=== PATIENT | male | born 1945 | race Caucasian/White ===

== ENCOUNTER 2018-09-20 10:22 | Day surgery (SDC) | payer MEDICARE, BC ==
[~2018-09-20] VITALS: Ht 175.3 cm; Wt 75.4 kg
[2018-09-20] VITALS (10 sets, daily range): BP systolic 110–135; BP diastolic 58–88
[~2018-09-20 10:22] MED LIST: INSU100V36 SQ; LANTUS SUBCUT; [UNRECOGNIZED DRUG - CODE] PO; [UNRECOGNIZED DRUG - CODE] PO
[2018-09-20] MEDS ORDERED: MIDAZolam 5mg/ml 2ml vial IV ONE (10:55)
[2018-09-20] MEDS ORDERED: fentaNYL/PF 50MCG/1 ML 2ML syringe IV ONE (10:55)
[2018-09-20] MEDS ORDERED: normal saline 1000ml 1,000 ML IV SCH (10:55)
[2018-09-20] MEDS ORDERED: DAPA10TA PO (10:57)
[2018-09-20] MEDS ORDERED: MULT-933 PO (10:57)
[2018-09-20] MEDS ORDERED: RIVA20TA PO (10:57)
[2018-09-20] MEDS ORDERED: AMYL1CAP57 PO (10:57)
[2018-09-20] MEDS ORDERED: FLEC100T2 PO (10:57)
== END 2018-09-20 13:26 | disposition home or self-care (01) ==
LOC: SSTAY O 10:22
PROVIDERS: ATTEND Internal Medicine Cardiovascular Disease
DX: I48.4 Atypical atrial flutter (principal); I08.1 Rheumatic disorders of both mitral and tricuspid valves
CPT/HCPCS: 92960; 93005; 93312; J2250; J3010; J7030

== ENCOUNTER 2019-04-09 13:08 | Outpatient (CLI) | payer MEDICARE, BC ==
[~2019-04-09 13:08] MED LIST changes: +AMYL1CAP57 PO; +DAPA10TA PO; +FLEC100T2 PO; -INSU100V36 SQ; +MULT-933 PO; +RIVA20TA PO; -[UNRECOGNIZED DRUG - CODE] PO; -[UNRECOGNIZED DRUG - CODE] PO
== END 2019-04-09 23:59 | disposition home or self-care (01) ==
LOC: RAD 13:08
PROVIDERS: ATTEND Internal Medicine Gastroenterology
DX: R13.14 Dysphagia, pharyngoesophageal phase (principal); K21.0 Gastro-esophageal reflux disease with esophagitis; R05 Cough; R09.89 Other specified symptoms and signs involving the circulatory and respiratory systems; F17.200 Nicotine dependence, unspecified, uncomplicated; Z79.899 Other long term (current) drug therapy
CPT/HCPCS: 74230

== ENCOUNTER 2021-07-15 08:00 | Day surgery (SDC) | payer MEDICARE, BC ==
[~2021-07-15] VITALS: Ht 175.3 cm; Wt 68.0 kg
[2021-07-15] MEDS ORDERED: normal saline 1000ml 1,000 ML IV SCH (08:30)
[2021-07-15] MEDS ORDERED: MIDAZolam 1mg/ml 10ml vial IV ONE (08:30)
[2021-07-15] MEDS ORDERED: fentaNYL/PF 50MCG/1 ML 2ML syringe IV ONE (08:30)
[2021-07-15 08:32] VITALS: BP 160/74
[2021-07-15] MEDS ORDERED: Vitamin D3 PO (08:39)
[2021-07-15] MEDS ORDERED: ASCO-162 PO (08:39)
[2021-07-15] MEDS ORDERED: tumeric PO (08:39)
[2021-07-15 08:56] LABS: BASOPHILS # (AUTO) 0.1 X10'3 (0-0.2); EOSINOPHILS # (AUTO) 0.3 X10'3 (0-0.9); EOSINOPHILS % (AUTO) 2.9 % (0-6); HEMATOCRIT 38.3 % (42.0-52.0); HEMOGLOBIN 12.7 g/dl (14.0-17.9); LYMPHOCYTES # (AUTO) 2.2 X10'3 (1.1-4.8); LYMPHOCYTES % (AUTO) 22.2 % (21-51); MEAN CORPUSCULAR HEMOGLOBIN 30.4 PG (27.0-31.0); MEAN CORPUSCULAR HGB CONC 33.1 g/dL (33.0-36.5); MEAN CORPUSCULAR VOLUME 91.8 FL (78-98); MEAN PLATELET VOLUME 8.2 FL (7.4-10.4); MONOCYTES % (AUTO) 10.4 % (2-12); NEUTROPHILS # (AUTO) 6.2 X10'3 (1.8-7.7); NEUTROPHILS % (AUTO) 63.5 % (42-75); PLATELET COUNT 598 X10'3 (140-440); RED BLOOD COUNT 4.17 X10'6 (4.70-6.10); RED CELL DISTRIBUTION WIDTH 14.3 % (11.5-14.5); WHITE BLOOD COUNT 9.8 X10'3 (4.5-11.0)
--- NOTE | 2021-07-15 09:15 | NUR ---
Dr Holman at bedside, pt in Sinus Rhythm. reviewed EKG and pt on monitor. States will see him at next appointment in 1 month. canceled cardioversion.
[2021-07-15 10:36] LABS: ALBUMIN 3.4 G/DL (3.4-5.0); ANION GAP 12 (8-16); BLOOD UREA NITROGEN 16 MG/DL (7-18); BUN/CREATININE RATIO 18.2 (5.4-32.0); CALCIUM 8.2 MG/DL (8.5-10.1); CHLORIDE 107 MMOL/L (99-107); CREATININE 0.88 MG/DL (0.60-1.10); GLUCOSE 175 MG/DL (70-104); SODIUM 144 MMOL/L (135-145); eGFR 84 ML/MIN
== END 2021-07-15 09:23 | disposition home or self-care (01) ==
LOC: SSTAY O 08:00
PROVIDERS: ATTEND Internal Medicine Cardiovascular Disease
DX: I48.0 Paroxysmal atrial fibrillation (principal); Z53.8 Procedure and treatment not carried out for other reasons; Z79.899 Other long term (current) drug therapy
CPT/HCPCS: 36415; 80048; 82948; 83735; 85025; 85610

== ENCOUNTER 2021-07-27 12:26 | Inpatient (IN) | payer MEDICARE, BC ==
[~2021-07-27] VITALS: Ht 175.3 cm; Wt 67.3 kg
[~2021-07-27 12:26] MED LIST changes: +ASCO-162 PO; +Vitamin D3 PO; +tumeric PO
[2021-07-27] MEDS ORDERED: fentaNYL/PF 50MCG/1 ML 2ML syringe IV ONE (12:40)
[2021-07-27] MEDS ORDERED: ondansetron/PF 4mg/2ml inj IV ONE (12:50)
[2021-07-27] MEDS ORDERED: normal saline 1000ML IV soln IVB ONE (12:50)
[2021-07-27 13:06] LABS: BASOPHILS # (AUTO) 0.1 X10'3 (0-0.2); BASOPHILS % (AUTO) 0.4 % (0-1); HEMOGLOBIN 14.4 g/dl (14.0-17.9); LYMPHOCYTES # (AUTO) 1.8 X10'3 (1.1-4.8)
[2021-07-27 13:07] LABS: EOSINOPHILS # (AUTO) 0.1 X10'3 (0-0.9); EOSINOPHILS % (AUTO) 0.3 % (0-6); HEMATOCRIT 44.5 % (42.0-52.0); LYMPHOCYTES % (AUTO) 10.7 % (21-51); MEAN CORPUSCULAR HEMOGLOBIN 30.2 PG (27.0-31.0); MEAN CORPUSCULAR HGB CONC 32.4 g/dL (33.0-36.5); MEAN CORPUSCULAR VOLUME 93.3 FL (78-98); MEAN PLATELET VOLUME 8.3 FL (7.4-10.4); MONOCYTES % (AUTO) 5.6 % (2-12); NEUTROPHILS # (AUTO) 14.2 X10'3 (1.8-7.7); PLATELET COUNT 665 X10'3 (140-440); RED BLOOD COUNT 4.76 X10'6 (4.70-6.10); RED CELL DISTRIBUTION WIDTH 14.6 % (11.5-14.5); WHITE BLOOD COUNT 17.2 X10'3 (4.5-11.0)
[2021-07-27] MEDS: fentaNYL/PF 50MCG/1 ML 2ML syringe IV ONE ×2 (13:17→13:35)
[2021-07-27 13:21] LABS: ALANINE AMINOTRANSFERASE 35 U/L (12-78); ALBUMIN 4.3 G/DL (3.4-5.0); ALBUMIN/GLOBULIN RATIO 1.1 (1.1-1.5); ALKALINE PHOSPHATASE 142 IU/L (46-116); ANION GAP 13 (8-16); ASPARTATE AMINO TRANSFERASE 19 U/L (10-37); BILIRUBIN,TOTAL 0.5 MG/DL (0.1-1.0); BLOOD UREA NITROGEN 15 MG/DL (7-18); BUN/CREATININE RATIO 14.6 (5.4-32.0); CALCIUM 9.1 MG/DL (8.5-10.1); CHLORIDE 103 MMOL/L (99-107); CREATININE 1.03 MG/DL (0.60-1.10); GLUCOSE 154 MG/DL (70-104); MAGNESIUM 2.4 MG/DL (1.5-2.4); POTASSIUM 3.8 MMOL/L (3.5-5.1); SODIUM 141 MMOL/L (135-145); TOTAL CARBON DIOXIDE 24.9 MMOL/L (24-32); TOTAL PROTEIN 8.3 G/DL (6.4-8.2); eGFR 70 ML/MIN
--- NOTE | 2021-07-27 13:24 | NUR ---
NOTIFIED THE MÓNICA /PROVIDER THAT PT IS STILL NAUSEOUS AFTER THE IV ZOFRAN, VERBAL ORDER FOR COMPAZINE 10 MG IV ONCE AND ENCOURGE THE PT TO TAKE ORAL CONTRAST.
[2021-07-27] MEDS ORDERED: proCHLORperazine 10 MG/2 ml inj IV ONE (13:30)
[2021-07-27 13:42] LABS: LIPASE < 50 U/L (73-393)
--- NOTE | 2021-07-27 13:45 | NUR ---
GASTROGRAFFIN NOT STARTED YET PT WAS NAUSEOUS AND JUST ADMIN THE MEDS FOR NAUSEA,WILL REASSESS THE NAUSEA AND THEN ADMIN GASTROGRAFIN.
[2021-07-27] MEDS: diatr meglu/diatrizoate 30ml oral sol.-(3 dose) bottle PO SCH ×2 (13:57→15:01)
[2021-07-27] MEDS ORDERED: piperacillin/tazo 3.375gm/50ml 50 ML IV ONE (14:20)
[2021-07-27] MEDS ORDERED: normal saline 1000ML IV soln IV ONE (14:20)
[2021-07-27] MEDS ORDERED: iohexol 300mg/ml 100ml inj. ONE (14:29)
[2021-07-27 14:35] LABS: CLARITY,URINE CLEAR (Clear); GLUCOSE, URINE >=1000 mg/dl (Neg); KETONES,URINE TRACE mg/dl (Neg); LEUKOCYTE ESTERASE ,URINE NEGATIVE (Neg); NITRITES, URINE NEGATIVE (Neg); OCCULT BLOOD,URINE NEGATIVE (Neg); PROTEIN,URINE TRACE mg/dl (Neg); UROBILINOGEN,URINE 0.2 E.U/dL (0.2-1.0)
[2021-07-27] MEDS ORDERED: HYDROmorphone 1 mg/ml syringe IV ONE ×2 (14:35→16:00)
[2021-07-27 14:41] LABS: COLOR,URINE DARK YELLOW (Yellow); UA COLLECTION TYPE NON-SPECIFIED
[2021-07-27 14:43] LABS: BACTERIA,URINE FEW /HPF (Neg); MUCUS STRANDS MODERATE /LPF (Neg); RBC,URINE 0-2 /HPF (0-2); SQUAMOUS EPITHELIAL CELL,UR FEW /LPF (FEW); WBC,URINE 0-4 /HPF (0-4)
[2021-07-27 14:44] LABS: FINE GRANULAR CAST 0-3 /LPF (NEGATIVE)
[2021-07-27] MEDS ORDERED: LIDOcaine 1% (10mg/ml) 2ml vial ONE (16:28)
[2021-07-27] MEDS ORDERED: CHOL500049 PO (16:38)
[2021-07-27] MEDS ORDERED: LANTUS SQ (16:38)
[2021-07-27] MEDS ORDERED: DAPA10TA PO (16:38)
[2021-07-27] MEDS ORDERED: ASPI-1475 PO (16:38)
[2021-07-27] MEDS ORDERED: magnesium hydroxide 30ml (MOM) UD suspension PO PRN (16:45)
[2021-07-27] MEDS ORDERED: ondansetron/PF 4mg/2ml inj IV PRN ×3 (16:45→19:00)
[2021-07-27] MEDS ORDERED: acetaminophen 325mg tablet PO PRN ×2 (16:45)
[2021-07-27] MEDS ORDERED: HYDROmorphone/PF 0.2 MG/ML SYRINGE IV PRN ×3 (16:45→19:00)
[2021-07-27] MEDS ORDERED: potassium Cl 20 mEq SR tablet PO PRN ×2 (16:45)
[2021-07-27] MEDS ORDERED: bisacodyl 10mg suppository rectal RC PRN (16:45)
[2021-07-27] MEDS ORDERED: magnesium 4gm in 100ml NS 100 ML IV PRN (16:45)
[2021-07-27] MEDS ORDERED: magnesium Cl slow-release 64mg tablet PO PRN (16:45)
[2021-07-27] MEDS ORDERED: magnesium 2GM in 50ml NS 50 ML IV PRN (16:45)
[2021-07-27] MEDS ORDERED: mag hydrox/Alum hydrox/simeth 30ml oral suspension PO PRN (16:45)
[2021-07-27] MEDS ORDERED: potassium CL 10mEq/100ml bag 100 ML IV PRN (16:45)
[2021-07-27] MEDS ORDERED: ondansetron 4mg rapidly disintigrating tab PO PRN (16:45)
[2021-07-27 17:26] LABS: APTT 29 SECONDS (22-32); MAGNESIUM 2.1 MG/DL (1.5-2.4); POTASSIUM 4.2 MMOL/L (3.5-5.1)
--- NOTE | 2021-07-27 17:27 | NUR ---
pt taken to or by recovery staff ,pt belonging and chart handed over to staff , accompained with the pt .
[2021-07-27] MEDS ORDERED: glycopyrrolate 0.2mg/ml inj ONE (17:36)
[2021-07-27] MEDS ORDERED: neostigmine methylsulfate 1 MG/ML 10ml vial ONE (17:36)
[2021-07-27] MEDS ORDERED: sevoflurane 250ml liquid IH ONE (17:36)
[2021-07-27] MEDS ORDERED: midazolam 1 mg/ML 2ml injection ONE (17:40)
[2021-07-27] MEDS ORDERED: fentaNYL /PF 50mcg/ml 5ml ampule ONE (17:43)
[2021-07-27] MEDS: VANCOMYCIN 1GM/200ML IVPB 200 ML IV SCH (18:00)
[2021-07-27] MEDS ORDERED: propofol inj 20 ML IV ONE (18:36)
[2021-07-27] MEDS ORDERED: rocuronium 10mg/ml inj IV ONE (18:36)
[2021-07-27] MEDS ORDERED: labetalol 20mg/4ml (5mg/ml) syringe IV ONE (18:36)
[2021-07-27] MEDS ORDERED: sugammadex 200mg/2ml injection IV ONE (18:43)
--- NOTE | 2021-07-27 18:55 | NUR ---
Received from OR via bed, accompanied by Anesthesiologist jorge and report given by Anesthesiolgist. pt drowsy, oxygenating well on 10 lpm 02 via mask, no resp distress noted. denies nausea, c/o pain to abd 8/10. medicated prn, see emar. midline abdominal incision covered with island dsg, scant sanginous drainage. marked drainage with pen. fc patent, scds on. r radial art line dcd. rij cvl, xray confirmed placement. vss, sl htn. will continue to monitor.
[2021-07-27] MEDS ORDERED: labetalol 20mg/4ml (5mg/ml) syringe IV PRN (19:00)
[2021-07-27] MEDS ORDERED: ringers solution, lacted 1,000 ML IV SCH (19:00)
[2021-07-27] MEDS ORDERED: meperidine/PF 25mg/ml syringe IV PRN ×3 (19:00)
[2021-07-27 19:09] VITALS: BP 171/85
[2021-07-27 19:20] VITALS: BP 161/68
[2021-07-27 19:30] VITALS: BP 160/69
[2021-07-27 19:40] VITALS: BP 162/79
[2021-07-27] MEDS ORDERED: HYDROmorphone inj. 0.5 MG/0.5 ML DISP.SYRIN ONE (19:48)
[2021-07-27 19:50] VITALS: BP 155/80
[2021-07-27 20:00] VITALS: BP 150/78
[2021-07-27] MEDS: docusate sod 100mg capsule PO SCH (20:00)
[2021-07-27] MEDS: K and/or MAG REPLACEMENT MC SCH (20:00)
--- NOTE | 2021-07-27 20:20 | NUR ---
Report called to receiving nurse. Transferred via bed Belongings with pt, 1 bag with clothes and b hearing aids are in ears. pain level trending down after meds given in pacu. vss. stable at time of transfer. Special Issues communicated to receiving nurse.
[2021-07-27] MEDS: normal saline 1000ml 1,000 ML IV SCH (21:00)
[2021-07-27] MEDS ORDERED: temazepam 15mg capsule PO PRN (21:00)
[2021-07-27] MEDS: HYDROmorphone inj. 0.5 MG/0.5 ML DISP.SYRIN IV PRN (21:01)
[2021-07-28] VITALS: BP 130/55
[2021-07-28] MEDS: piperacillin/tazo 3.375gm/50ml 50 ML IV SCH ×4 (00:33→23:56)
[2021-07-28] MEDS: HYDROmorphone inj. 0.5 MG/0.5 ML DISP.SYRIN IV PRN ×5 (01:46→20:38)
[2021-07-28] MEDS: normal saline 1000ml 1,000 ML IV SCH ×3 (02:45→17:47)
[2021-07-28 05:19] LABS: BASOPHILS # (AUTO) 0.1 X10'3 (0-0.2); BASOPHILS % (AUTO) 0.4 % (0-1); EOSINOPHILS % (AUTO) 0 % (0-6); HEMATOCRIT 37.5 % (42.0-52.0); HEMOGLOBIN 12.1 g/dl (14.0-17.9); LYMPHOCYTES # (AUTO) 1.5 X10'3 (1.1-4.8); LYMPHOCYTES % (AUTO) 7.4 % (21-51); MEAN CORPUSCULAR HGB CONC 32.3 g/dL (33.0-36.5); MEAN CORPUSCULAR VOLUME 92.9 FL (78-98); MEAN PLATELET VOLUME 8.2 FL (7.4-10.4); MONOCYTES # (AUTO) 1.6 X10'3 (0-0.9); MONOCYTES % (AUTO) 8.1 % (2-12); NEUTROPHILS # (AUTO) 16.9 X10'3 (1.8-7.7); NEUTROPHILS % (AUTO) 84.1 % (42-75); PLATELET COUNT 584 X10'3 (140-440); RED BLOOD COUNT 4.03 X10'6 (4.70-6.10); RED CELL DISTRIBUTION WIDTH 14.4 % (11.5-14.5); WHITE BLOOD COUNT 20.1 X10'3 (4.5-11.0)
[2021-07-28 05:58] LABS: ALANINE AMINOTRANSFERASE 25 U/L (12-78); ALBUMIN 2.9 G/DL (3.4-5.0); ALBUMIN/GLOBULIN RATIO 1.1 (1.1-1.5); ALKALINE PHOSPHATASE 99 IU/L (46-116); ANION GAP 10 (8-16); ASPARTATE AMINO TRANSFERASE 15 U/L (10-37); BILIRUBIN,TOTAL 0.7 MG/DL (0.1-1.0); BLOOD UREA NITROGEN 12 MG/DL (7-18); BUN/CREATININE RATIO 16.9 (5.4-32.0); CALCIUM 7.4 MG/DL (8.5-10.1); CHLORIDE 111 MMOL/L (99-107); CREATININE 0.71 MG/DL (0.60-1.10); GLUCOSE 99 MG/DL (70-104); MAGNESIUM 1.8 MG/DL (1.5-2.4); POTASSIUM 4.5 MMOL/L (3.5-5.1); SODIUM 142 MMOL/L (135-145); TOTAL CARBON DIOXIDE 20.7 MMOL/L (24-32); TOTAL PROTEIN 5.5 G/DL (6.4-8.2); eGFR > 90 ML/MIN
--- NOTE | 2021-07-28 06:44 | NUR ---
Problems reprioritized. Patient report given, questions answered & plan of care reviewed with AGUSTIN CASAS.
--- NOTE | 2021-07-28 06:44 | NUR ---
Patient in room ZOIE 357. I have received report from YESSENIA Tapia and had the opportunity to ask questions and assume patient care.
[2021-07-28 07:00] VITALS: BP 138/59
[2021-07-28] MEDS: docusate sod 100mg capsule PO SCH ×2 (07:43→19:14)
[2021-07-28] MEDS: flecainide 50mg tablet PO SCH (07:44)
[2021-07-28] MEDS: VANCOMYCIN 1GM/200ML IVPB 200 ML IV SCH ×2 (07:45→20:38)
[2021-07-28] MEDS: K and/or MAG REPLACEMENT MC SCH ×2 (08:00→20:00)
[2021-07-28] MEDS: aspirin 81mg, enteric-coated 1 TAB TABLET.DR PO SCH (08:00)
[2021-07-28] MEDS ORDERED: insulin glargine (Lantus) pen - multi-dose SQ SCH (08:00)
[2021-07-28 11:00] VITALS: BP 147/56
[2021-07-28 11:51] LABS: HEMOGLOBIN A1C 7.9 % (4.5-6.2)
[2021-07-28 12:30] VITALS: BP 139/63
--- NOTE | 2021-07-28 13:10 | NUR ---
Diabetes consult: Noted pt w/ hx of DM, A1c 7.9 down from 9.8 in 2017. Written DM ed w/ RD contact info placed in pt chart Addendum: 07/28/21 at [address] Amended: Links added.
--- NOTE | 2021-07-28 13:40 | NUR ---
FC DC'd by student RN and instructor. Pt tolerated well. Will continue to monitor.
--- NOTE | 2021-07-28 17:12 | NUR ---
Charting by Jamshid SHARMA reviewed by Myranda Roldan RN
[2021-07-28] MEDS ORDERED: insulin Lispro (HumaLOG) vial - multi-dose SQ SCH (18:20)
[2021-07-28] MEDS ORDERED: glucagon, human recombinant 1mg kit SUBCUT PRN (18:20)
[2021-07-28] MEDS ORDERED: DEXTROSE 15 GM of carb/4 tabs (each vial/BOTTLE has 4 tablets) PO PRN ×2 (18:20)
[2021-07-28] MEDS ORDERED: dextrose 50%-water 50ml dispensing syringe IV PRN ×2 (18:20)
--- NOTE | 2021-07-28 18:20 | NUR ---
Patient in room ZOIE 357. I have received report from karoline CASAS and had the opportunity to ask questions and assume patient care.
--- NOTE | 2021-07-28 18:37 | NUR ---
Problems reprioritized. Patient report given, questions answered & plan of care reviewed with YESSENIA Tapia.
[2021-07-28] MEDS: rivaroxaban 20mg tablet PO SCH (19:15)
[2021-07-28] MEDS ORDERED: VANCOMYCIN LEVEL IV ONE (19:30)
[2021-07-28] MEDS: metoclopramide 5 mg/ml inj IV PRN (20:31)
--- NOTE | 2021-07-28 20:45 | NUR ---
Pt ambulated about 60 feet and has been up to the BR with 1 assist. Pt had a bout of bile/greenish emesis 100 ml, reglan 10 mg IVP administered and was effective.
[2021-07-28] MEDS: insulin glargine (Lantus) pen - multi-dose SQ SCH (21:00)
[2021-07-28] MEDS ORDERED: flecainide 50mg tablet PO ONE (21:40)
[2021-07-28 22:34] VITALS: BP 169/58
[2021-07-29] VITALS: BP 95/55
[2021-07-29 00:38] VITALS: BP 141/99
[2021-07-29] MEDS: HYDROmorphone inj. 0.5 MG/0.5 ML DISP.SYRIN IV PRN ×4 (03:08→18:52)
[2021-07-29 06:18] LABS: BASOPHILS # (AUTO) 0.1 X10'3 (0-0.2); BASOPHILS % (AUTO) 0.4 % (0-1); EOSINOPHILS # (AUTO) 0.2 X10'3 (0-0.9); HEMATOCRIT 35.2 % (42.0-52.0); HEMOGLOBIN 11.4 g/dl (14.0-17.9); LYMPHOCYTES # (AUTO) 1.4 X10'3 (1.1-4.8); LYMPHOCYTES % (AUTO) 7.3 % (21-51); MEAN CORPUSCULAR HGB CONC 32.3 g/dL (33.0-36.5); MEAN CORPUSCULAR VOLUME 92.9 FL (78-98); MEAN PLATELET VOLUME 8.5 FL (7.4-10.4); MONOCYTES # (AUTO) 1.8 X10'3 (0-0.9); MONOCYTES % (AUTO) 9.4 % (2-12); NEUTROPHILS # (AUTO) 15.9 X10'3 (1.8-7.7); NEUTROPHILS % (AUTO) 81.9 % (42-75); PLATELET COUNT 511 X10'3 (140-440); RED BLOOD COUNT 3.79 X10'6 (4.70-6.10); RED CELL DISTRIBUTION WIDTH 14.8 % (11.5-14.5); WHITE BLOOD COUNT 19.4 X10'3 (4.5-11.0)
[2021-07-29 06:34] LABS: ALANINE AMINOTRANSFERASE 21 U/L (12-78); ALBUMIN 2.8 G/DL (3.4-5.0); ALBUMIN/GLOBULIN RATIO 1.1 (1.1-1.5); ALKALINE PHOSPHATASE 88 IU/L (46-116); ANION GAP 11 (8-16); ASPARTATE AMINO TRANSFERASE 15 U/L (10-37); BILIRUBIN,TOTAL 0.7 MG/DL (0.1-1.0); BLOOD UREA NITROGEN 18 MG/DL (7-18); BUN/CREATININE RATIO 22.8 (5.4-32.0); CALCIUM 7.6 MG/DL (8.5-10.1); CHLORIDE 109 MMOL/L (99-107); CREATININE 0.79 MG/DL (0.60-1.10); GLUCOSE 143 MG/DL (70-104); POTASSIUM 4.6 MMOL/L (3.5-5.1); SODIUM 141 MMOL/L (135-145); TOTAL CARBON DIOXIDE 21.3 MMOL/L (24-32); TOTAL PROTEIN 5.4 G/DL (6.4-8.2); eGFR > 90 ML/MIN
--- NOTE | 2021-07-29 06:44 | NUR ---
Patient in room ZOIE 357. I have received report from YESSENIA Tapia and had the opportunity to ask questions and assume patient care.
--- NOTE | 2021-07-29 06:50 | NUR ---
Problems reprioritized. Patient report given, questions answered & plan of care reviewed with Marjorie CASAS.
[2021-07-29] MEDS: metoclopramide 5 mg/ml inj IV PRN (07:36)
[2021-07-29] MEDS: docusate sod 100mg capsule PO SCH ×2 (07:46→19:57)
[2021-07-29] MEDS: flecainide 50mg tablet PO SCH ×2 (07:47→20:07)
[2021-07-29] MEDS: piperacillin/tazo 3.375gm/50ml 50 ML IV SCH ×3 (07:51→23:44)
[2021-07-29 08:00] VITALS: BP 174/61
[2021-07-29] MEDS: aspirin 81mg, enteric-coated 1 TAB TABLET.DR PO SCH (08:00)
[2021-07-29] MEDS: K and/or MAG REPLACEMENT MC SCH ×2 (08:00→20:00)
[2021-07-29 11:00] VITALS: BP 142/55
[2021-07-29] MEDS ORDERED: FLEC100T PO (11:31)
[2021-07-29] MEDS: normal saline 1000ml 1,000 ML IV SCH ×2 (17:17→19:00)
[2021-07-29 18:00] VITALS: BP 131/56
--- NOTE | 2021-07-29 18:20 | NUR ---
Problems reprioritized. Patient report given, questions answered & plan of care reviewed with YESSENIA Salinas.
[2021-07-29] MEDS: rivaroxaban 20mg tablet PO SCH (18:51)
[2021-07-29 20:00] VITALS: BP 173/59
[2021-07-29] MEDS: insulin glargine (Lantus) pen - multi-dose SQ SCH (21:00)
[2021-07-30] VITALS: BP 127/62
--- NOTE | 2021-07-30 04:25 | NUR ---
20 G PERIPHERAL IV INSERTED LEFT WRIST.
[2021-07-30] MEDS: HYDROmorphone inj. 0.5 MG/0.5 ML DISP.SYRIN IV PRN ×3 (04:36→14:33)
[2021-07-30 04:40] LABS: BASOPHILS # (AUTO) 0.1 X10'3 (0-0.2); BASOPHILS % (AUTO) 0.7 % (0-1); EOSINOPHILS # (AUTO) 0.8 X10'3 (0-0.9); EOSINOPHILS % (AUTO) 5.1 % (0-6); HEMOGLOBIN 11.3 g/dl (14.0-17.9); LYMPHOCYTES # (AUTO) 1.3 X10'3 (1.1-4.8); LYMPHOCYTES % (AUTO) 8.4 % (21-51); MEAN CORPUSCULAR HEMOGLOBIN 29.9 PG (27.0-31.0); MEAN CORPUSCULAR HGB CONC 32.2 g/dL (33.0-36.5); MEAN CORPUSCULAR VOLUME 92.6 FL (78-98); MEAN PLATELET VOLUME 8.7 FL (7.4-10.4); MONOCYTES # (AUTO) 1.7 X10'3 (0-0.9); MONOCYTES % (AUTO) 10.7 % (2-12); NEUTROPHILS # (AUTO) 11.8 X10'3 (1.8-7.7); NEUTROPHILS % (AUTO) 75.1 % (42-75); PLATELET COUNT 495 X10'3 (140-440); RED BLOOD COUNT 3.78 X10'6 (4.70-6.10); RED CELL DISTRIBUTION WIDTH 14.4 % (11.5-14.5); WHITE BLOOD COUNT 15.7 X10'3 (4.5-11.0)
--- NOTE | 2021-07-30 04:43 | NUR ---
CENTRAL LINE DC. PRESSURE DRESSING APPLIED TO NECK . NO BLEDDING NOTED. PT TOLERATED PROCEDURE WELL.
[2021-07-30 04:46] LABS: ALANINE AMINOTRANSFERASE 17 U/L (12-78); ALBUMIN 2.5 G/DL (3.4-5.0); ALBUMIN/GLOBULIN RATIO 0.8 (1.1-1.5); ALKALINE PHOSPHATASE 80 IU/L (46-116); ANION GAP 12 (8-16); ASPARTATE AMINO TRANSFERASE 16 U/L (10-37); BILIRUBIN,TOTAL 0.7 MG/DL (0.1-1.0); BLOOD UREA NITROGEN 17 MG/DL (7-18); CALCIUM 7.7 MG/DL (8.5-10.1); CHLORIDE 109 MMOL/L (99-107); CREATININE 0.68 MG/DL (0.60-1.10); GLUCOSE 117 MG/DL (70-104); MAGNESIUM 1.9 MG/DL (1.5-2.4); POTASSIUM 3.7 MMOL/L (3.5-5.1); SODIUM 141 MMOL/L (135-145); TOTAL CARBON DIOXIDE 20.4 MMOL/L (24-32); TOTAL PROTEIN 5.7 G/DL (6.4-8.2); eGFR > 90 ML/MIN
[2021-07-30] MEDS: normal saline 1000ml 1,000 ML IV SCH ×2 (05:44→15:43)
--- NOTE | 2021-07-30 06:41 | NUR ---
Problems reprioritized. Patient report given, questions answered & plan of care reviewed with Renata CASAS.
[2021-07-30] MEDS: K and/or MAG REPLACEMENT MC SCH ×2 (06:52→20:00)
[2021-07-30] MEDS: aspirin 81mg, enteric-coated 1 TAB TABLET.DR PO SCH (06:52)
[2021-07-30] MEDS: flecainide 50mg tablet PO SCH ×2 (07:01→20:24)
[2021-07-30] MEDS: docusate sod 100mg capsule PO SCH ×2 (07:01→19:26)
[2021-07-30 07:35] VITALS: BP 116/68
[2021-07-30] MEDS: piperacillin/tazo 3.375gm/50ml 50 ML IV SCH ×2 (10:04→16:18)
[2021-07-30 11:00] VITALS: BP 123/63
[2021-07-30] MEDS: rivaroxaban 20mg tablet PO SCH (17:22)
[2021-07-30 18:00] VITALS: BP 116/71
--- NOTE | 2021-07-30 18:38 | NUR ---
Patient in room ZOIE 357. I have received report from Renata CASAS and had the opportunity to ask questions and assume patient care.
--- NOTE | 2021-07-30 18:45 | NUR ---
Report given to Bobbi CASAS, all questions answered. Pt resting comfortably in bed.
[2021-07-30] MEDS: oxyCODONE/APAP 5-325mg tablet PO PRN (19:26)
[2021-07-30] MEDS ORDERED: VANCOMYCIN LEVEL IV ONE (19:30)
[2021-07-30] MEDS: insulin glargine (Lantus) pen - multi-dose SQ SCH (21:00)
[2021-07-30] MEDS ORDERED: traMADol 50MG tablet PO PRN (21:50)
[2021-07-31] VITALS: BP 121/54
[2021-07-31] MEDS: piperacillin/tazo 3.375gm/50ml 50 ML IV SCH ×3 (00:42→17:03)
[2021-07-31] MEDS: oxyCODONE/APAP 5-325mg tablet PO PRN ×3 (04:05→19:57)
[2021-07-31] MEDS: normal saline 1000ml 1,000 ML IV SCH ×3 (04:06→17:03)
[2021-07-31 06:01] LABS: BASOPHILS # (AUTO) 0.1 X10'3 (0-0.2); BASOPHILS % (AUTO) 0.5 % (0-1); EOSINOPHILS # (AUTO) 0.5 X10'3 (0-0.9); EOSINOPHILS % (AUTO) 3.4 % (0-6); HEMATOCRIT 35.1 % (42.0-52.0); HEMOGLOBIN 11.2 g/dl (14.0-17.9); LYMPHOCYTES # (AUTO) 1.3 X10'3 (1.1-4.8); LYMPHOCYTES % (AUTO) 9.6 % (21-51); MEAN CORPUSCULAR HEMOGLOBIN 29.8 PG (27.0-31.0); MEAN CORPUSCULAR VOLUME 93.1 FL (78-98); MEAN PLATELET VOLUME 8.7 FL (7.4-10.4); MONOCYTES # (AUTO) 1.8 X10'3 (0-0.9); MONOCYTES % (AUTO) 12.9 % (2-12); NEUTROPHILS # (AUTO) 10.3 X10'3 (1.8-7.7); NEUTROPHILS % (AUTO) 73.6 % (42-75); PLATELET COUNT 485 X10'3 (140-440); RED BLOOD COUNT 3.77 X10'6 (4.70-6.10); RED CELL DISTRIBUTION WIDTH 14.5 % (11.5-14.5); WHITE BLOOD COUNT 13.9 X10'3 (4.5-11.0)
--- NOTE | 2021-07-31 06:22 | NUR ---
Problems reprioritized. Patient report given, questions answered & plan of care reviewed with Renata CASAS.
[2021-07-31 06:24] LABS: ALANINE AMINOTRANSFERASE 17 U/L (12-78); ALBUMIN 2.3 G/DL (3.4-5.0); ALBUMIN/GLOBULIN RATIO 0.7 (1.1-1.5); ALKALINE PHOSPHATASE 73 IU/L (46-116); ANION GAP 13 (8-16); ASPARTATE AMINO TRANSFERASE 13 U/L (10-37); BILIRUBIN,TOTAL 0.7 MG/DL (0.1-1.0); BLOOD UREA NITROGEN 13 MG/DL (7-18); BUN/CREATININE RATIO 17.1 (5.4-32.0); CALCIUM 7.7 MG/DL (8.5-10.1); CHLORIDE 108 MMOL/L (99-107); CREATININE 0.76 MG/DL (0.60-1.10); GLUCOSE 146 MG/DL (70-104); POTASSIUM 3.7 MMOL/L (3.5-5.1); SODIUM 142 MMOL/L (135-145); TOTAL CARBON DIOXIDE 20.6 MMOL/L (24-32); TOTAL PROTEIN 5.5 G/DL (6.4-8.2); eGFR > 90 ML/MIN
[2021-07-31] MEDS: K and/or MAG REPLACEMENT MC SCH ×2 (07:11→20:00)
[2021-07-31] MEDS: flecainide 50mg tablet PO SCH ×2 (07:15→21:17)
[2021-07-31] MEDS: docusate sod 100mg capsule PO SCH ×2 (07:15→19:57)
[2021-07-31 11:00] VITALS: BP 167/70
[2021-07-31] MEDS: rivaroxaban 20mg tablet PO SCH (17:03)
--- NOTE | 2021-07-31 18:29 | NUR ---
Report given to Regina RN, she is familiar with patient. All questions answered at this time. Patient is doing well.
[2021-07-31 19:00] VITALS: BP 135/76
[2021-07-31] MEDS: insulin glargine (Lantus) pen - multi-dose SQ SCH (21:33)
[2021-08-01] VITALS: BP 130/73
[2021-08-01] MEDS: piperacillin/tazo 3.375gm/50ml 50 ML IV SCH ×2 (00:14→10:33)
[2021-08-01] MEDS: normal saline 1000ml 1,000 ML IV SCH (03:02)
[2021-08-01] MEDS: oxyCODONE/APAP 5-325mg tablet PO PRN ×2 (04:07→11:24)
--- NOTE | 2021-08-01 06:13 | NUR ---
Patient in room ZOIE 357. I have received report from YESSENIA Tapia and had the opportunity to ask questions and assume patient care.
--- NOTE | 2021-08-01 06:35 | NUR ---
Dr Augusto orellana for hospitalist to discharge patient. Patient can have home health. Also, patient is aware no roughage (ie, celery and salads.) for a few weeks. Primary RN Toy hurd
--- NOTE | 2021-08-01 06:37 | NUR ---
Problems reprioritized. Patient report given, questions answered & plan of care reviewed with Toy CASAS.
[2021-08-01 06:50] LABS: BASOPHILS # (AUTO) 0.1 X10'3 (0-0.2); BASOPHILS % (AUTO) 0.9 % (0-1); EOSINOPHILS # (AUTO) 0.8 X10'3 (0-0.9); EOSINOPHILS % (AUTO) 8.1 % (0-6); HEMATOCRIT 33.7 % (42.0-52.0); HEMOGLOBIN 11.2 g/dl (14.0-17.9); LYMPHOCYTES # (AUTO) 1.7 X10'3 (1.1-4.8); LYMPHOCYTES % (AUTO) 16.3 % (21-51); MEAN CORPUSCULAR HEMOGLOBIN 30.5 PG (27.0-31.0); MEAN CORPUSCULAR HGB CONC 33.3 g/dL (33.0-36.5); MEAN CORPUSCULAR VOLUME 91.6 FL (78-98); MEAN PLATELET VOLUME 8.5 FL (7.4-10.4); MONOCYTES # (AUTO) 1.5 X10'3 (0-0.9); MONOCYTES % (AUTO) 14.5 % (2-12); NEUTROPHILS # (AUTO) 6.1 X10'3 (1.8-7.7); NEUTROPHILS % (AUTO) 60.2 % (42-75); PLATELET COUNT 505 X10'3 (140-440); RED BLOOD COUNT 3.67 X10'6 (4.70-6.10); RED CELL DISTRIBUTION WIDTH 14.3 % (11.5-14.5); WHITE BLOOD COUNT 10.2 X10'3 (4.5-11.0)
[2021-08-01 06:56] LABS: ALANINE AMINOTRANSFERASE 17 U/L (12-78); ALBUMIN 2.1 G/DL (3.4-5.0); ALBUMIN/GLOBULIN RATIO 0.7 (1.1-1.5); ALKALINE PHOSPHATASE 65 IU/L (46-116); ANION GAP 5 (8-16); ASPARTATE AMINO TRANSFERASE 13 U/L (10-37); BILIRUBIN,TOTAL 0.4 MG/DL (0.1-1.0); BLOOD UREA NITROGEN 8 MG/DL (7-18); CALCIUM 7.5 MG/DL (8.5-10.1); CHLORIDE 110 MMOL/L (99-107); CREATININE 0.73 MG/DL (0.60-1.10); GLUCOSE 120 MG/DL (70-104); SODIUM 142 MMOL/L (135-145); TOTAL CARBON DIOXIDE 26.6 MMOL/L (24-32); TOTAL PROTEIN 5.2 G/DL (6.4-8.2); eGFR > 90 ML/MIN
[2021-08-01 07:00] VITALS: BP 137/62
--- NOTE | 2021-08-01 07:25 | NUR ---
Message: ShilpaA- DONOVAN KOHLER 3.0. OK TO ORDER REPLACEMENT PROTOCOL.-[facility] 4712
[2021-08-01] MEDS: docusate sod 100mg capsule PO SCH (07:49)
[2021-08-01] MEDS: flecainide 50mg tablet PO SCH (07:49)
[2021-08-01] MEDS: K and/or MAG REPLACEMENT MC SCH (08:00)
--- NOTE | 2021-08-01 08:37 | NUR ---
Message: ShilpaA- CATRACHITA KOHLER- CRITICAL K OF 3.0. OK TO ORDER REPLACEMENT PROTOCOL?- THANK YOU, IL[facility] 1745 Custom Responses: promotional table spacer Transaction number: [id number]
[2021-08-01] MEDS ORDERED: magnesium Cl slow-release 64mg tablet PO PRN (08:40)
[2021-08-01] MEDS ORDERED: potassium Cl 20 mEq SR tablet PO PRN (08:40)
[2021-08-01] MEDS ORDERED: magnesium 4gm in 100ml NS 100 ML IV PRN (08:40)
[2021-08-01] MEDS ORDERED: potassium CL 10mEq/100ml bag 100 ML IV PRN (08:40)
[2021-08-01] MEDS ORDERED: AMOX-419 PO (08:41)
[2021-08-01] MEDS ORDERED: POTA10TA37 PO (08:41)
[2021-08-01] MEDS ORDERED: MAGN400C PO (08:43)
--- NOTE | 2021-08-01 08:51 | NUR ---
patient being discharged no humalog given.
[2021-08-01] MEDS: potassium Cl 20 mEq SR tablet PO PRN ×2 (09:06→11:23)
--- NOTE | 2021-08-01 09:41 | NUR ---
Called patients pharmacy [facility] [address] and spoke to Nikita who stated they have no rx for pain medication for patient at this time. Nikita spoke to the phamacist Adonis who stated depending on the amount of pain medication the doctor prescribes today they might be able to fill but they are almost at their quota. Per Dr Casas please call Tatiana at [phone] for him and have her call [facility] for patient only. I called Tatiana and she is aware of Dr Casas request. I also advised Tatiana that the [facility] is almost at their quota and patients 2nd choice will be the [facility] [address].
--- NOTE | 2021-08-01 10:46 | NUR ---
patient up to ambulate and felt dizzy. pt stated everything started to sway to the right. assisted patient back to bed. 156/72, 67HR sp02 98%. he also states this has "happened before too but they could never tell me why."
--- NOTE | 2021-08-01 10:53 | NUR ---
Message: [id number]- Nathalia W-pt up to ambulate and felt dizzy. pt stated everything started to sway to the right. assisted pt back to bed. 156/72, 67HR sp02 98%. he also states this has "happened before too but they could never tell me why." -Toy 3588 Custom Responses: promotional table spacer Transaction number: [id number] Addendum: 08/01/21 at 1057 by Karuna Torrez RN Dr Robles aware states that patient ok to go home after potassium replacement. He just needs to continue to hydrate.
[2021-08-01 11:00] VITALS: BP 143/65
--- NOTE | 2021-08-01 12:17 | NUR ---
Received call back from Dr. Robles who states no concerns and patient may dc if K results WNL. Patient was able to get up and ambulate escorted by Erickson PCT without assist and without issues. Patient and pct stated patient tolerated well and patient denies dizziness or lightheadedness.
[2021-08-01 12:51] LABS: POTASSIUM 3.1 MMOL/L (3.5-5.1)
--- NOTE | 2021-08-01 12:57 | NUR ---
Message: Se Atkinson is 3.1 after receiving kdur 40meq @ 0906 and another 40meq @ [address] [place], [place] [address] Transaction number: [id number]
[2021-08-01] MEDS ORDERED: potassium Cl 20 mEq SR tablet PO STA (12:58)
--- NOTE | 2021-08-01 15:00 | NUR ---
Dr. Robles aware patient's K still low. Dr. Robles ordered for another K draw and if K is >3.3 then patient may dc. Let Dr. Robles know that patient and his spouse did voice concern regarding patient's low K. Dr. Robles stated he is not concerned as patient will be dc'ing with [facility] and will need to follow up with primary if patient's K is >3.3. Let patient know and spouse. They are agreeable to dc.
--- NOTE | 2021-08-01 16:55 | NUR ---
Patient's K is 3.9. Karuna CASAS discussed with patient and his spouse discharge instructions and new prescription. Patient aware that his pain med was called to [facility]. Patient was alert and oriented in no apparrent distress and dc'd with all personal belongings escorted in wheelchair accompanied by x1 pct and his spouse.
[2021-08-01] MEDS ORDERED: enoxaparin 40mg/0.4ml syringe SUBCUT SCH (20:00)
[2021-08-01] MEDS ORDERED: K and/or MAG REPLACEMENT MC SCH (20:00)
== END 2021-08-01 16:57 | disposition home or self-care (01) | DRG 336 ==
LOC: ER 12:27 → ED HOLD 16:50 → UNDOADMIN 16:50 → ED HOLD 17:49 → SUR 3N 19:49
PROVIDERS: ADMIT Family Medicine; ATTEND Family Medicine
PROC: BW211ZZ Computerized Tomography (CT Scan) of Abdomen and Pelvis using Low Osmolar Contrast (ICD-10-PCS; 2021-07-27)
PROC: 0DN80ZZ Release Small Intestine, Open Approach (ICD-10-PCS; principal; 2021-07-27 17:36)
DX: K56.50 Intestinal adhesions [bands], unspecified as to partial versus complete obstruction (principal); D68.69 Other thrombophilia; I48.91 Unspecified atrial fibrillation; N40.0 Benign prostatic hyperplasia without lower urinary tract symptoms; Z20.822 Contact with and (suspected) exposure to COVID-19; I10 Essential (primary) hypertension; E11.9 Type 2 diabetes mellitus without complications; Z79.01 Long term (current) use of anticoagulants; Z85.07 Personal history of malignant neoplasm of pancreas; Z87.891 Personal history of nicotine dependence; Z90.411 Acquired partial absence of pancreas; Z90.81 Acquired absence of spleen; Z88.5 Allergy status to narcotic agent; Z90.49 Acquired absence of other specified parts of digestive tract
CPT/HCPCS: 36415; 71045; 74177; 80053; 80202; 81001; 82948; 83036; 83605; 83690; 83735; 84132; 84145; 85025; 85610; 85730; 86885; 86900; 86901; 86920; 87040; 87081; 87635; 93005; 96361; 96365; 96375; 96376; 97116; 97161; 97530; 99285; A4618; A6258; A6449; A7000; C1758; C9803; G0378; J0780; J1170; J1815; J2250; J2405; J2543; J2704; J2710; J2765; J3010; J3370; J3490; J7030; J7040; Q9963; Q9967

== ENCOUNTER 2022-09-21 22:07 | Emergency (ER) | payer MEDICARE, BC ==
[~2022-09-21] VITALS: Ht 172.7 cm; Wt 63.6 kg
[~2022-09-21 22:07] MED LIST changes: -AMYL1CAP57 PO; -ASCO-162 PO; +CHOL500049 PO; +FLEC100T PO; +LANTUS SQ; -LANTUS SUBCUT; -MULT-933 PO; +ONDA4TAB12 PO; -Vitamin D3 PO; -tumeric PO
[2022-09-21] MEDS ORDERED: AMOX-117 PO (22:48)
[2022-09-21 23:07] VITALS: BP 148/124
== END 2022-09-21 23:08 | disposition home or self-care (01) ==
LOC: ER 22:08
DX: K11.5 Sialolithiasis (principal); T81.49XA Infection following a procedure, other surgical site, initial encounter; D64.9 Anemia, unspecified; E11.9 Type 2 diabetes mellitus without complications; I51.9 Heart disease, unspecified; Z88.5 Allergy status to narcotic agent; Z88.8 Allergy status to other drugs, medicaments and biological substances; Z79.899 Other long term (current) drug therapy
CPT/HCPCS: 99283

== ENCOUNTER 2023-02-25 21:04 | Inpatient (IN) | payer MEDICARE, BC ==
[~2023-02-25] VITALS: Ht 175.3 cm; Wt 57.0 kg
[2023-02-25] MEDS ORDERED: normal saline 1000ML IV soln IVB ONE (22:05)
[2023-02-25 22:11] LABS: BASOPHILS # (AUTO) 0.1 X10'3 (0-0.2); BASOPHILS % (AUTO) 0.3 % (0-1); EOSINOPHILS % (AUTO) 0.1 % (0-6); HEMATOCRIT 40.8 % (42.0-52.0); HEMOGLOBIN 13.2 g/dl (14.0-17.9); LYMPHOCYTES # (AUTO) 0.7 X10'3 (1.1-4.8); LYMPHOCYTES % (AUTO) 4.6 % (21-51); MEAN CORPUSCULAR HEMOGLOBIN 29.6 PG (27.0-31.0); MEAN CORPUSCULAR HGB CONC 32.4 g/dL (33.0-36.5); MEAN CORPUSCULAR VOLUME 91.3 FL (78-98); MEAN PLATELET VOLUME 8.4 FL (7.4-10.4); MONOCYTES # (AUTO) 0.1 X10'3 (0-0.9); MONOCYTES % (AUTO) 0.7 % (2-12); NEUTROPHILS % (AUTO) 94.3 % (42-75); PLATELET COUNT 597 X10'3 (140-440); RED BLOOD COUNT 4.47 X10'6 (4.70-6.10); RED CELL DISTRIBUTION WIDTH 15.1 % (11.5-14.5); WHITE BLOOD COUNT 15.9 X10'3 (4.5-11.0)
[2023-02-25 22:15] LABS: ALANINE AMINOTRANSFERASE 49 U/L (12-78); ALBUMIN 3.6 G/DL (3.4-5.0); ALKALINE PHOSPHATASE 148 IU/L (46-116); ANION GAP 10 (8-16); ASPARTATE AMINO TRANSFERASE 21 U/L (10-37); BILIRUBIN,TOTAL 0.8 MG/DL (0.1-1.0); BLOOD UREA NITROGEN 17 MG/DL (7-18); BUN/CREATININE RATIO 16.3 (10.0-20.0); CALCIUM 9.1 MG/DL (8.5-10.1); CHLORIDE 101 MMOL/L (99-107); CREATININE 1.04 MG/DL (0.60-1.10); GLUCOSE 244 MG/DL (70-104); POTASSIUM 4.2 MMOL/L (3.5-5.1); SODIUM 135 MMOL/L (135-145); TOTAL CARBON DIOXIDE 24.4 MMOL/L (24-32); TOTAL PROTEIN 7.1 G/DL (6.4-8.2); eCRCL 47 ML/MIN; eGFR 69 ML/MIN
[2023-02-25 22:18] LABS: LIPASE 83 U/L (16-77)
[2023-02-26] MEDS ORDERED: ondansetron/PF 4mg/2ml inj IV ONE (01:05)
[2023-02-26] MEDS ORDERED: HYDROmorphone inj. 0.5 MG/0.5 ML DISP.SYRIN IV ONE (01:05)
[2023-02-26] MEDS ORDERED: CefTRIAXone/D5W-Rocephin 1gm 50 ML IV ONE (01:05)
[2023-02-26] MEDS ORDERED: iohexol 300mg/ml 100ml inj. ONE (01:12)
[2023-02-26 02:45] LABS: BILIRUBIN,URINE NEGATIVE (Neg); CLARITY,URINE SLIGHTLY CLOUDY (Clear); COLOR,URINE YELLOW (Yellow); GLUCOSE, URINE >=1000 mg/dl (Neg); KETONES,URINE NEGATIVE (Neg); LEUKOCYTE ESTERASE ,URINE NEGATIVE (Neg); NITRITES, URINE NEGATIVE (Neg); OCCULT BLOOD,URINE NEGATIVE (Neg); PH,URINE 5.5 (4.8-8.0); PROTEIN,URINE NEGATIVE (Neg); UROBILINOGEN,URINE 0.2 E.U/dL (0.2-1.0)
[2023-02-26 02:56] LABS: SQUAMOUS EPITHELIAL CELL,UR FEW /LPF (FEW); UA COLLECTION TYPE VOIDED
[2023-02-26 02:57] LABS: BACTERIA,URINE FEW /HPF (Neg); HYALINE CASTS 0-3 /LPF (NEGATIVE); MUCUS STRANDS FEW /LPF (Neg); RBC,URINE 0-2 /HPF (0-2); WBC,URINE 0-4 /HPF (0-4)
[2023-02-26] MEDS ORDERED: magnesium Cl slow-release 64mg tablet PO PRN (04:05)
[2023-02-26] MEDS ORDERED: DEXTROSE 15 GM of carb/4 tabs (each vial/BOTTLE has 4 tablets) PO PRN ×2 (04:05)
[2023-02-26] MEDS ORDERED: magnesium hydroxide 30ml (MOM) UD suspension PO PRN (04:05)
[2023-02-26] MEDS ORDERED: MESSAGE TO PHARMACY PO ONE (04:05)
[2023-02-26] MEDS ORDERED: glucagon, human recombinant 1mg kit SUBCUT PRN (04:05)
[2023-02-26] MEDS ORDERED: magnesium 4gm in 100ml NS 100 ML IV PRN (04:05)
[2023-02-26] MEDS ORDERED: potassium Cl 20 mEq SR tablet PO PRN ×2 (04:05)
[2023-02-26] MEDS ORDERED: mag hydrox/Alum hydrox/simeth 30ml oral suspension PO PRN (04:05)
[2023-02-26] MEDS ORDERED: magnesium 2GM in 50ml NS 50 ML IV PRN (04:05)
[2023-02-26] MEDS ORDERED: acetaminophen 325mg tablet PO PRN (04:05)
[2023-02-26] MEDS ORDERED: insulin Lispro (HumaLOG) vial - multi-dose SQ SCH (04:05)
[2023-02-26] MEDS ORDERED: dextrose 50%-water 50ml dispensing syringe IV PRN ×2 (04:05)
[2023-02-26] MEDS ORDERED: potassium Cl 40MEQ/1/2NS 520ml 520 ML IV PRN (04:05)
[2023-02-26] MEDS ORDERED: INSU100I8 SQ (04:16)
[2023-02-26] MEDS ORDERED: LIPA1CAP18 PO (04:16)
[2023-02-26 04:52] LABS: HEMOGLOBIN A1C 7.8 % (4.5-6.2)
[2023-02-26] MEDS ORDERED: ERGO500056 PO (05:41)
[2023-02-26] MEDS: oxyCODONE/APAP 5-325mg tablet PO PRN ×2 (06:25→20:16)
--- NOTE | 2023-02-26 06:32 | NUR ---
Morning vitals WNL. Pt medicated for mid-lower abdominal pain 11/27. All needs addressed. Pt maintaining home CPAP well. Call light within reach. Will continue to monitor. Waiting inpatient bed.
[2023-02-26] MEDS ORDERED: metroNIDAZOLE-Flagyl 500mg/NS 100 ML IV SCH (08:00)
[2023-02-26] MEDS ORDERED: ciprofloxacin lact 400MG/200ML 200 ML IV SCH (08:00)
[2023-02-26] MEDS ORDERED: CefTRIAXone/D5W-Rocephin 1gm 50 ML IV SCH (08:00)
[2023-02-26] MEDS ORDERED: enoxaparin 40mg/0.4ml syringe SUBCUT SCH (08:00)
[2023-02-26] MEDS: docusate sod 100mg capsule PO SCH ×2 (09:13→19:52)
[2023-02-26] MEDS: K and/or MAG REPLACEMENT MC SCH ×2 (10:29→20:00)
[2023-02-26] MEDS ORDERED: diphenhydrAMINE 50 mg/ml inj IV ONE (11:00)
--- NOTE | 2023-02-26 11:02 | NUR ---
After 5 mins of infusion of ciprofloxacin, pt endorsing itching to R arm. Infusion stopped and IV flushed. Dr Montez notified. See orders. On continuous bedside monitor for observation.
--- NOTE | 2023-02-26 11:32 | NUR ---
DR MCGUIRE NOTIFIED OF POSITIVE BLOOD CULTURE, NO NEW ORDERS RECEIVED, PT RN NOTIFIED
[2023-02-26] MEDS: HYDROmorphone inj. 0.5 MG/0.5 ML DISP.SYRIN IV PRN (12:45)
--- NOTE | 2023-02-26 13:08 | NUR ---
Pt itching has subsided after benadryl given. Cipro discontinued per Dr Montez, see orders for med changes.
[2023-02-26] MEDS ORDERED: ASCO100031 PO (13:39)
--- NOTE | 2023-02-26 14:11 | NUR ---
Per Dr Montez orders, can advanced diet as tolerated. Pt wanted to stick to clear liquids for lunch today. Upgraded diet to full liquids for dinner tray. May advanced diet to soft foods for breakfast if pt wishes and if he's able to tolerate full liquids. Pt denies any contipation or diarrhea or nausea. Pt medicated for pain per md orders for RLQ to RUQ abdominal pain.
--- NOTE | 2023-02-26 16:01 | NUR ---
Pt requesting regular diet for dinner tonight. Order placed. Pt denies N/V/D.
[2023-02-26] MEDS: piperacillin/tazo 3.375gm/50ml 50 ML IV SCH ×2 (16:15→23:54)
--- NOTE | 2023-02-26 17:26 | NUR ---
Patient in room ED 2. I have received report from Laquita in ED and had the opportunity to ask questions and assume patient care.
--- NOTE | 2023-02-26 18:43 | NUR ---
Patient was dropped off by ED staff WITHOUT contact to staff on this floor to advise. Patient was in his room resting comfortably. Report given to oncaline RN, August.
[2023-02-26 19:00] VITALS: BP 150/58; PULSE 58; RESP 18; TEMP 97.7; O2SAT 98
[2023-02-26] MEDS: rivaroxaban 20mg tablet PO SCH (19:52)
[2023-02-26] MEDS: flecainide 50mg tablet PO SCH (19:53)
[2023-02-26] MEDS: insulin glargine (Lantus) pen - multi-dose SQ SCH (21:00)
--- NOTE | 2023-02-26 21:46 | NUR ---
DECLINES INSULIN DUE TO WHIPPLE PROCEDURE, HX PANCREATIC CA/ SENSITIVITY TO INSULIN.
[2023-02-27] VITALS (7 sets, daily range): BP systolic 117–157; BP diastolic 41–60; PULSE 50–73; RESP 14–20; TEMP 97–98.3; O2SAT 97–100
[2023-02-27 06:10] LABS: BASOPHILS # (AUTO) 0.1 X10'3 (0-0.2); BASOPHILS % (AUTO) 0.6 % (0-1); EOSINOPHILS # (AUTO) 0.4 X10'3 (0-0.9); EOSINOPHILS % (AUTO) 2.5 % (0-6); HEMATOCRIT 36.3 % (42.0-52.0); HEMOGLOBIN 11.7 g/dl (14.0-17.9); LYMPHOCYTES # (AUTO) 2.1 X10'3 (1.1-4.8); LYMPHOCYTES % (AUTO) 14.6 % (21-51); MEAN CORPUSCULAR HEMOGLOBIN 29.4 PG (27.0-31.0); MEAN CORPUSCULAR HGB CONC 32.4 g/dL (33.0-36.5); MEAN CORPUSCULAR VOLUME 90.9 FL (78-98); MEAN PLATELET VOLUME 8.5 FL (7.4-10.4); MONOCYTES # (AUTO) 1.7 X10'3 (0-0.9); MONOCYTES % (AUTO) 11.9 % (2-12); NEUTROPHILS # (AUTO) 10.3 X10'3 (1.8-7.7); NEUTROPHILS % (AUTO) 70.4 % (42-75); PLATELET COUNT 525 X10'3 (140-440); RED BLOOD COUNT 3.99 X10'6 (4.70-6.10); RED CELL DISTRIBUTION WIDTH 14.9 % (11.5-14.5); WHITE BLOOD COUNT 14.7 X10'3 (4.5-11.0)
--- NOTE | 2023-02-27 06:42 | NUR ---
Patient in room ORTHO 4009. I have received report from YESSENIA SPARKS and had the opportunity to ask questions and assume patient care.
[2023-02-27 06:50] LABS: ALANINE AMINOTRANSFERASE 34 U/L (12-78); ALBUMIN 2.8 G/DL (3.4-5.0); ALBUMIN/GLOBULIN RATIO 0.9 (1.1-1.5); ALKALINE PHOSPHATASE 111 IU/L (46-116); ANION GAP 7 (8-16); ASPARTATE AMINO TRANSFERASE 18 U/L (10-37); BILIRUBIN,TOTAL 0.4 MG/DL (0.1-1.0); BLOOD UREA NITROGEN 19 MG/DL (7-18); BUN/CREATININE RATIO 21.3 (10.0-20.0); CALCIUM 8.5 MG/DL (8.5-10.1); CHLORIDE 102 MMOL/L (99-107); CREATININE 0.89 MG/DL (0.60-1.10); GLUCOSE 147 MG/DL (70-104); MAGNESIUM 2.4 MG/DL (1.5-2.4); POTASSIUM 4.2 MMOL/L (3.5-5.1); SODIUM 134 MMOL/L (135-145); eCRCL 55 ML/MIN; eGFR 83 ML/MIN
[2023-02-27] MEDS: oxyCODONE/APAP 5-325mg tablet PO PRN ×4 (07:21→21:52)
[2023-02-27] MEDS: piperacillin/tazo 3.375gm/50ml 50 ML IV SCH ×2 (07:52→15:40)
[2023-02-27] MEDS: docusate sod 100mg capsule PO SCH ×2 (07:52→19:12)
[2023-02-27] MEDS: flecainide 50mg tablet PO SCH ×2 (07:53→21:21)
[2023-02-27] MEDS: K and/or MAG REPLACEMENT MC SCH ×2 (08:00→20:00)
--- NOTE | 2023-02-27 10:00 | NUR ---
DM Consult: Pt admitted for N/V and diarrhea following eating possibly moldy food at restaurant [employer] per EMR. Hx T1DM following Whipple procedure for pancreatic CA A1C 7.8% takes Lantus 14 units HS and Farxiga Q30D at home per EMR. Pt A1C appropriate given age; on heart healthy/carb controlled diet 75-100% first two meals per EMR. DEEPIKA d/w RN regarding routine pancreatic enzymes w/ meals if MD agreeable given hx. Addendum: 02/27/23 at [address] Amended: Links added.
[2023-02-27] MEDS: Lipase/Protease/Amylase (Creon Dr 36,000 Units Capsule) PO SCH (17:30)
--- NOTE | 2023-02-27 18:15 | NUR ---
Problems reprioritized. Patient report given, questions answered & plan of care reviewed with YESSENIA Bear.
[2023-02-27] MEDS: rivaroxaban 20mg tablet PO SCH (19:12)
[2023-02-27] MEDS: insulin glargine (Lantus) pen - multi-dose SQ SCH (21:00)
--- NOTE | 2023-02-27 22:07 | NUR ---
Student documentation: I have reviewed interventions, assessments performed and documented by Connie SHARMA [facility].
[2023-02-28] MEDS: piperacillin/tazo 3.375gm/50ml 50 ML IV SCH ×4 (00:04→23:18)
[2023-02-28] MEDS: HYDROmorphone inj. 0.5 MG/0.5 ML DISP.SYRIN IV PRN ×2 (05:39→15:17)
[2023-02-28 06:23] LABS: BASOPHILS # (AUTO) 0.1 X10'3 (0-0.2); BASOPHILS % (AUTO) 1.2 % (0-1); EOSINOPHILS # (AUTO) 0.4 X10'3 (0-0.9); EOSINOPHILS % (AUTO) 4.2 % (0-6); HEMATOCRIT 38.2 % (42.0-52.0); HEMOGLOBIN 12.3 g/dl (14.0-17.9); LYMPHOCYTES # (AUTO) 2.7 X10'3 (1.1-4.8); LYMPHOCYTES % (AUTO) 25.9 % (21-51); MEAN CORPUSCULAR HEMOGLOBIN 29.7 PG (27.0-31.0); MEAN CORPUSCULAR HGB CONC 32.3 g/dL (33.0-36.5); MEAN CORPUSCULAR VOLUME 91.9 FL (78-98); MEAN PLATELET VOLUME 8.6 FL (7.4-10.4); MONOCYTES # (AUTO) 1.4 X10'3 (0-0.9); MONOCYTES % (AUTO) 14.1 % (2-12); NEUTROPHILS # (AUTO) 5.6 X10'3 (1.8-7.7); NEUTROPHILS % (AUTO) 54.6 % (42-75); PLATELET COUNT 510 X10'3 (140-440); RED BLOOD COUNT 4.15 X10'6 (4.70-6.10); RED CELL DISTRIBUTION WIDTH 15.4 % (11.5-14.5); WHITE BLOOD COUNT 10.3 X10'3 (4.5-11.0)
[2023-02-28 06:33] LABS: ALANINE AMINOTRANSFERASE 32 U/L (12-78); ALBUMIN 2.9 G/DL (3.4-5.0); ALBUMIN/GLOBULIN RATIO 0.9 (1.1-1.5); ALKALINE PHOSPHATASE 109 IU/L (46-116); ANION GAP 5 (8-16); ASPARTATE AMINO TRANSFERASE 14 U/L (10-37); BILIRUBIN,TOTAL 0.2 MG/DL (0.1-1.0); BLOOD UREA NITROGEN 15 MG/DL (7-18); BUN/CREATININE RATIO 17.6 (10.0-20.0); CALCIUM 8.7 MG/DL (8.5-10.1); CHLORIDE 104 MMOL/L (99-107); CREATININE 0.85 MG/DL (0.60-1.10); GLUCOSE 172 MG/DL (70-104); MAGNESIUM 2.5 MG/DL (1.5-2.4); POTASSIUM 4.2 MMOL/L (3.5-5.1); SODIUM 137 MMOL/L (135-145); TOTAL CARBON DIOXIDE 27.8 MMOL/L (24-32); TOTAL PROTEIN 6.2 G/DL (6.4-8.2); eCRCL 58 ML/MIN; eGFR 87 ML/MIN
[2023-02-28] MEDS: Lipase/Protease/Amylase (Creon Dr 36,000 Units Capsule) PO SCH ×3 (07:30→21:07)
[2023-02-28] MEDS: flecainide 50mg tablet PO SCH ×2 (07:45→21:00)
[2023-02-28] MEDS: oxyCODONE/APAP 5-325mg tablet PO PRN ×2 (07:49→11:44)
[2023-02-28] MEDS: docusate sod 100mg capsule PO SCH ×2 (07:50→21:03)
[2023-02-28] MEDS: K and/or MAG REPLACEMENT MC SCH ×2 (07:51→23:53)
--- NOTE | 2023-02-28 16:16 | NUR ---
Pt refused insulin for lunch. Will continue to monitor patient
[2023-02-28 18:00] VITALS: BP 148/58; PULSE 48; RESP 14; TEMP 97.8; O2SAT 98
[2023-02-28 18:30] VITALS: RESP 14; O2SAT 98
--- NOTE | 2023-02-28 18:51 | NUR ---
Problems reprioritized. Patient report given, questions answered & plan of care reviewed with YESSENIA Tristan.
[2023-02-28] MEDS: insulin glargine (Lantus) pen - multi-dose SQ SCH (21:00)
[2023-02-28] MEDS: rivaroxaban 20mg tablet PO SCH (21:03)
[2023-02-28 22:00] VITALS: BP 154/57; PULSE 52; RESP 16; TEMP 96.5; O2SAT 99
--- NOTE | 2023-02-28 22:27 | NUR ---
Student documentation: I have reviewed interventions, assessments performed and documented by Ricky SHARMA [facility].
[2023-03-01] MEDS: oxyCODONE/APAP 5-325mg tablet PO PRN (02:10)
--- NOTE | 2023-03-01 05:04 | NUR ---
beronica england noted. dose is hanging. Addendum: 03/01/23 at 0506 by Azalea Gabriel RN omit- wrong patient
--- NOTE | 2023-03-01 06:20 | NUR ---
Patient in room ORTHO 4009. I have received report from YESSENIA Tristan and had the opportunity to ask questions and assume patient care.
[2023-03-01 06:44] LABS: BASOPHILS # (AUTO) 0.1 X10'3 (0-0.2); EOSINOPHILS # (AUTO) 0.4 X10'3 (0-0.9); HEMOGLOBIN 12.1 g/dl (14.0-17.9); MEAN CORPUSCULAR HGB CONC 32.6 g/dL (33.0-36.5); RED CELL DISTRIBUTION WIDTH 14.7 % (11.5-14.5); WHITE BLOOD COUNT 9.4 X10'3 (4.5-11.0)
[2023-03-01 06:46] LABS: BASOPHILS % (AUTO) 0.9 % (0-1); LYMPHOCYTES # (AUTO) 2.3 X10'3 (1.1-4.8); LYMPHOCYTES % (AUTO) 24.3 % (21-51); MEAN CORPUSCULAR HEMOGLOBIN 29.8 PG (27.0-31.0); MEAN CORPUSCULAR VOLUME 91.3 FL (78-98); MEAN PLATELET VOLUME 8.6 FL (7.4-10.4); MONOCYTES % (AUTO) 10.3 % (2-12); NEUTROPHILS # (AUTO) 5.7 X10'3 (1.8-7.7); NEUTROPHILS % (AUTO) 60.5 % (42-75); PLATELET COUNT 548 X10'3 (140-440); RED BLOOD COUNT 4.05 X10'6 (4.70-6.10)
--- NOTE | 2023-03-01 06:46 | NUR ---
reported to days. noted pt anticipates discharge today.
[2023-03-01 06:52] LABS: ALANINE AMINOTRANSFERASE 26 U/L (12-78); ALBUMIN 2.8 G/DL (3.4-5.0); ALBUMIN/GLOBULIN RATIO 0.8 (1.1-1.5); ALKALINE PHOSPHATASE 102 IU/L (46-116); ANION GAP 4 (8-16); ASPARTATE AMINO TRANSFERASE 17 U/L (10-37); BILIRUBIN,TOTAL 0.2 MG/DL (0.1-1.0); BLOOD UREA NITROGEN 14 MG/DL (7-18); BUN/CREATININE RATIO 17.7 (10.0-20.0); CALCIUM 8.9 MG/DL (8.5-10.1); CHLORIDE 104 MMOL/L (99-107); CREATININE 0.79 MG/DL (0.60-1.10); GLUCOSE 155 MG/DL (70-104); MAGNESIUM 2.3 MG/DL (1.5-2.4); POTASSIUM 3.6 MMOL/L (3.5-5.1); SODIUM 134 MMOL/L (135-145); TOTAL CARBON DIOXIDE 26.1 MMOL/L (24-32); TOTAL PROTEIN 6.1 G/DL (6.4-8.2); eCRCL 62 ML/MIN; eGFR > 90 ML/MIN
[2023-03-01] MEDS: Lipase/Protease/Amylase (Creon Dr 36,000 Units Capsule) PO SCH ×3 (07:30→17:30)
[2023-03-01 07:52] LABS: ACANTHOCYTES FEW; BURR CELLS FEW; HYPOCHROMASIA 1+; LARGE PLATELETS FEW; PLATELET ESTIMATE INCREASED
[2023-03-01 08:00] VITALS: RESP 16; O2SAT 96
[2023-03-01] MEDS: K and/or MAG REPLACEMENT MC SCH ×2 (08:00→20:00)
[2023-03-01] MEDS: docusate sod 100mg capsule PO SCH ×2 (08:12→19:00)
[2023-03-01] MEDS: flecainide 50mg tablet PO SCH ×2 (08:14→21:21)
[2023-03-01] MEDS: piperacillin/tazo 3.375gm/50ml 50 ML IV SCH (08:32)
--- NOTE | 2023-03-01 10:25 | NUR ---
Initial: Pt admit for N/V with diarrhea and abdominal pain which is possibly r/t the development of early diverticulitis per physician note. Pt met sepsis criteria on admit per physician progress note. Noted pt with a low BMI for geriatric age though unsure if current wt is accurate d/t being documented as a chair scale and emergency weight. Of note pt with -2 L cumulative fluid balance per I&O. Pt currently on a heart healthy diet and eating well, documented with average 91% PO intake since admit meeting 100% estimated energy needs and 84% estimated protein needs. Pt with no documented edema or significant decrease in muscle strength. LBM 03/01, documented as small. Pt receiving routine Colace and with additional PRN bowel care available. No nutrition intervention implemented at this time. Will continue to follow and make recommendations as appropriate. Recommendations: 1) Continue heart healthy diet; change to low fiber diet if pt with diverticulitis; monitor need for CHO controlled diet-pt hasn't received insulin since admit per EMR 2) Monitor need for ONS/additional protein 3) Routine bowel care 4) Weekly scaled weights Addendum: 03/01/23 at [address] Amended: Links added.
[2023-03-01] MEDS: levoFLOXACIN-Levaquin 750MG/D5 150 ML IV SCH (14:31)
--- NOTE | 2023-03-01 15:00 | NUR ---
WILD documentation: I have reviewed and agree with all interventions, assessments performed and documented by Carine Puckett LVN. Addendum: 03/01/23 at 1633 by Merlin Jett RN Agree with WILD Reyes LVN. Disregard Carine Puckett
[2023-03-01 18:00] VITALS: BP 148/50; PULSE 54; RESP 18; TEMP 98.1; O2SAT 98
--- NOTE | 2023-03-01 18:30 | NUR ---
Patient in room ORTHO 4009. I have received report from YESSENIA Pryor and had the opportunity to ask questions and assume patient care.
[2023-03-01] MEDS: rivaroxaban 20mg tablet PO SCH (19:00)
[2023-03-01 20:00] VITALS: RESP 18; O2SAT 98
[2023-03-01] MEDS: insulin glargine (Lantus) pen - multi-dose SQ SCH (21:00)
[2023-03-01 22:00] VITALS: BP 144/59; PULSE 55; RESP 16; TEMP 97.5; O2SAT 99
[2023-03-02 06:00] VITALS: BP 124/49; PULSE 51; RESP 16; TEMP 97.9; O2SAT 96
--- NOTE | 2023-03-02 06:50 | NUR ---
Problems reprioritized. Patient report given, questions answered & plan of care reviewed with WILD Kilgore.
--- NOTE | 2023-03-02 06:57 | NUR ---
Patient in room ORTHO 4009. I have received report from YESSENIA Villa and had the opportunity to ask questions and assume patient care.
[2023-03-02] MEDS: docusate sod 100mg capsule PO SCH (07:25)
[2023-03-02] MEDS: flecainide 50mg tablet PO SCH (07:26)
[2023-03-02] MEDS: Lipase/Protease/Amylase (Creon Dr 36,000 Units Capsule) PO SCH (07:27)
[2023-03-02] MEDS: K and/or MAG REPLACEMENT MC SCH (07:28)
[2023-03-02 07:52] LABS: BASOPHILS # (AUTO) 0.1 X10'3 (0-0.2); HEMOGLOBIN 12.2 g/dl (14.0-17.9); NEUTROPHILS # (AUTO) 4.7 X10'3 (1.8-7.7); WHITE BLOOD COUNT 8.4 X10'3 (4.5-11.0)
[2023-03-02 07:53] LABS: BASOPHILS % (AUTO) 1.3 % (0-1); EOSINOPHILS # (AUTO) 0.4 X10'3 (0-0.9); EOSINOPHILS % (AUTO) 4.3 % (0-6); LYMPHOCYTES # (AUTO) 2.2 X10'3 (1.1-4.8); LYMPHOCYTES % (AUTO) 25.8 % (21-51); MEAN CORPUSCULAR HEMOGLOBIN 29.1 PG (27.0-31.0); MEAN CORPUSCULAR VOLUME 90.9 FL (78-98); MEAN PLATELET VOLUME 8.8 FL (7.4-10.4); MONOCYTES # (AUTO) 1.1 X10'3 (0-0.9); MONOCYTES % (AUTO) 12.6 % (2-12); PLATELET COUNT 581 X10'3 (140-440); RED BLOOD COUNT 4.18 X10'6 (4.70-6.10); RED CELL DISTRIBUTION WIDTH 14.5 % (11.5-14.5)
[2023-03-02 08:00] VITALS: RESP 16; O2SAT 97
[2023-03-02 08:04] LABS: ALANINE AMINOTRANSFERASE 32 U/L (12-78); ALBUMIN 2.9 G/DL (3.4-5.0); ALBUMIN/GLOBULIN RATIO 0.9 (1.1-1.5); ALKALINE PHOSPHATASE 100 IU/L (46-116); ANION GAP 6 (8-16); ASPARTATE AMINO TRANSFERASE 18 U/L (10-37); BILIRUBIN,TOTAL 0.3 MG/DL (0.1-1.0); BLOOD UREA NITROGEN 16 MG/DL (7-18); BUN/CREATININE RATIO 20.8 (10.0-20.0); CALCIUM 8.9 MG/DL (8.5-10.1); CHLORIDE 103 MMOL/L (99-107); CREATININE 0.77 MG/DL (0.60-1.10); GLUCOSE 173 MG/DL (70-104); MAGNESIUM 2.2 MG/DL (1.5-2.4); POTASSIUM 3.9 MMOL/L (3.5-5.1); SODIUM 138 MMOL/L (135-145); TOTAL CARBON DIOXIDE 28.8 MMOL/L (24-32); TOTAL PROTEIN 6.3 G/DL (6.4-8.2); eCRCL 64 ML/MIN; eGFR > 90 ML/MIN
[2023-03-02] MEDS: levoFLOXACIN-Levaquin 750MG/D5 150 ML IV SCH (09:10)
[2023-03-02 10:00] VITALS: BP 132/54; PULSE 65; RESP 17; TEMP 97.5; O2SAT 96
[2023-03-02] MEDS ORDERED: LEVO750T68 PO (11:18)
--- NOTE | 2023-03-02 11:30 | NUR ---
MINI[employer] SET CONSTRUCTOR documentation: I have reviewed and agree with all interventions, assessments performed and documented by Magui Salazar LVN.
--- NOTE | 2023-03-02 12:02 | NUR ---
Resident discharge home with spouse. Discharge information was provided to patient whom verbalize understanding. 20 guage IV was removed from left fore arm, cannula in tact. Nurse assisted resident to personal vehicle with all belongings.
== END 2023-03-02 11:50 | disposition home or self-care (01) | DRG 872 ==
LOC: ER 21:04 → ED HOLD 02-26 04:18 → ORTHO 4S 02-26 17:46
PROVIDERS: ADMIT Internal Medicine; ATTEND Family Medicine
PROC: BW211ZZ Computerized Tomography (CT Scan) of Abdomen and Pelvis using Low Osmolar Contrast (ICD-10-PCS; principal; 2023-02-26)
DX: A41.51 Sepsis due to Escherichia coli [E. coli] (principal); K57.92 Diverticulitis of intestine, part unspecified, without perforation or abscess without bleeding; E10.9 Type 1 diabetes mellitus without complications; G47.33 Obstructive sleep apnea (adult) (pediatric); I10 Essential (primary) hypertension; E78.5 Hyperlipidemia, unspecified; F17.210 Nicotine dependence, cigarettes, uncomplicated; I48.91 Unspecified atrial fibrillation; Z20.822 Contact with and (suspected) exposure to COVID-19; K08.89 Other specified disorders of teeth and supporting structures; Z85.07 Personal history of malignant neoplasm of pancreas; Z85.3 Personal history of malignant neoplasm of breast; Z87.11 Personal history of peptic ulcer disease; Z90.11 Acquired absence of right breast and nipple; Z90.49 Acquired absence of other specified parts of digestive tract; Z90.411 Acquired partial absence of pancreas; Z90.81 Acquired absence of spleen; Z88.5 Allergy status to narcotic agent; Z79.899 Other long term (current) drug therapy
CPT/HCPCS: 36415; 71045; 74177; 80053; 81001; 82948; 83036; 83605; 83690; 83735; 84145; 85008; 85025; 87040; 87077; 87081; 87186; 87502; 87503; 87811; 99285; A6212; A6213; G0378; J0696; J0744; J1170; J1200; J1650; J1815; J1956; J2405; J2543; J3490; J7030; J7040; Q9967

== ENCOUNTER 2025-02-26 14:22 | Outpatient (CLI) | payer MEDICARE, BC ==
[~2025-02-26 14:22] MED LIST changes: +ASCO10004 PO; -CHOL500049 PO; +ERGO500056 PO; -FLEC100T2 PO; +INSU100I8 SQ; +LIPA1CAP18 PO; -ONDA4TAB12 PO; +iohexol 350 MG/ML 50ML vial IV ONE
--- NOTE | 2025-02-26 16:07 | RADIOLOGY REPORT ---
EXAM: CT CTA ABDOMEN LOWER EXTR RUNOFF HISTORY: MESENTERIC ARTERY DISEASE, CONGENITAL MALFORMATION OF AORTA UNSPECIFIED COMPARISON: CT CTA ABDOMEN PELVIS on DOS: 07/16/23 TECHNIQUE: CT angiogram of the abdomen and pelvis. CT scans at this facility use dose modulation, iterative reconstruction, and/or weight based dosing when appropriate to reduce radiation dose to as low as reasonably achievable. 100 mL of low osmolar contrast was administered without adverse effect. 3-D postprocessing was performed on a separate workstation under radiologist supervision. MIPs were created. VASCULAR FINDINGS: Normal caliber of abdominal aorta without evidence of aortic dissection or aneurysm. The mesenteric, and bilateral renal, iliac and femoral arteries are widely patent without any focal stenosis or aneurysm Calcified plaque along the visualized bilateral lower extremity. In bilateral lower extremities, [id number]-left poor distal lower extremity runoff beyond the level of the ankle. Imaging finding may be related to contrast timing however correlate for bilateral decreased velocity of flow. Less than 50 percent scattered areas of atherosclerotic plaque along the entirety of the femoral arteries extending into the popliteal arteries and tibioperoneal trunk. Scattered areas of calcified plaque along bilateral lower extremity calf vasculature. NON-VASCULAR FINDINGS: [LUNG BASES]: The partially visualized lung bases are clear without a pleural effusion. The cardiac size is normal without pericardial effusion. [LIVER]: No suspicious liver lesion [GALLBLADDER AND BILIARY TREE]: Left-sided pneumobilia. 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 [ADRENAL GLANDS]: Unremarkable [KIDNEYS]: No hydronephrosis. No nephroureterolithiasis. Benign-appearing bilateral kidney cysts [BLADDER]: Unremarkable for the degree distention. [PELVIC ORGANS]: Unremarkable. [BOWEL/MESENTERY]: Stomach is decompressed. Proximal gastric wall thickening. Left hemiabdomen slight fluid distention of the proximal jejunal loops. [id number] stool burden. [ASCITES]: Absent [LYMPHADENOPATHY]: No pathologically enlarged lymph nodes by CT size criteria [ABDOMINAL WALL]: Unremarkable. [MUSCULOSKELETAL]: No acute fracture or aggressive focal osseous lesion. Multifocal degenerative change of the visualized spine. IMPRESSION: 1. Poor distal contrast flow beyond bilateral ankles couple which may be related to decreased cardiac output versus proximal stenosis. 2. However no visualized high-grade greater than 90 percent areas of stenosis. 3. Mixed atherosclerotic plaque along the bilateral femoral arteries to tibioperoneal trunks. 4. Mild to moderate stool burden. Correlate for constipation.
== END 2025-02-26 23:59 | disposition home or self-care (01) ==
LOC: RAD 14:22
PROVIDERS: ATTEND Internal Medicine
DX: I25.10 Atherosclerotic heart disease of native coronary artery without angina pectoris (principal); K55.1 Chronic vascular disorders of intestine; N28.1 Cyst of kidney, acquired; Q25.40 Congenital malformation of aorta unspecified; M47.819 Spondylosis without myelopathy or radiculopathy, site unspecified; Z90.81 Acquired absence of spleen
CPT/HCPCS: 75635; Q9967

== ENCOUNTER 2025-03-09 08:24 | Outpatient (CLI) | payer MEDICARE, BC ==
[~2025-03-09 08:24] MED LIST changes: -iohexol 350 MG/ML 50ML vial IV ONE
--- NOTE | 2025-03-09 11:55 | VASCULAR REPORT ---
Procedure: VASC VL MESENTERIC Exam Date: 03/09/2025 08:52 AM History: Superior mesenteric stenosis Comparison Study: VASC VL MESENTERIC on DOS: 07/16/23, CT CTA ABDOMEN PELVIS on DOS: 07/16/23, CT CT ABDOMEN PELVIS on DOS: 07/15/23, CT CT ABDOMEN PELVIS on DOS: 07/15/23, CT CT ABDOMEN PELVIS on DOS: 02/26/23 Abdominal Duplex Findings: Assessment Origin Proximal Mid Distal Superior Mesenteric A. PSV 148.6cm/s PSV 195.6cm/s PSV 138.8cm/s PSV 79.5cm/s EDV 12.6cm/s EDV 0.0cm/s EDV 14.6cm/s EDV 12.1cm/s Aortic Duplex A/P Transverse Longitudinal Proximal Aorta 1.6cm Mid Aorta 2.0cm Distal Aorta 1.6cm Aortic Doppler Velocity Waveform Proximal Aorta 92.5 cm/sec CONCLUSION Technically difficult exam due to severe scar tissue in her abdomen. Celiac, hepatic, and splenic arteries are not visualized. Superficial mesenteric artery appears to fall within normal limits. Unable to visualize the inferior mesenteric artery.
== END 2025-03-09 23:59 | disposition home or self-care (01) ==
LOC: VAS 08:24
PROVIDERS: ATTEND Surgery
DX: K55.1 Chronic vascular disorders of intestine (principal)
CPT/HCPCS: 93975